=== PATIENT | female | born 1975 | race Caucasian/White ===

== ENCOUNTER 2019-06-04 15:55 | Outpatient (CLI) | payer BC, SELFPAY ==
--- NOTE | ~2019-06-04 | CT_ITS ---
EXAMINATION: CT sinus wo con EXAM DATE: 06/04/2019 16:20 INDICATION: Pulsatile tinnitus. TECHNIQUE: Spiral CT of the sinuses was acquired in the axial plane. Coronal and sagittal reformatte d images were also reviewed. The dose-length product (DLP) for this examination was 315.62 mGy-cm. Iterative reconstruction (ASIR) was used as dose reduction technique. There is no prior study for co mparison. FINDINGS: The sinuses are normally developed. Small left maxillary sinus mucous retention cyst. T he ostiomeatal units are patent. There is no sinus wall thickening. There is mild leftward nasal septal deviation. The mastoid air cells and middle ears are well aerated. External auditory canals are patent. The orbits and visualized soft tissues are unremarkable. Symmetric carotid canals. IMPRESSION: 1. Mild leftward nasal septal deviation. Reviewed, dictated and finalized at location A. F OPERATOR
== END 2019-06-04 15:56 | disposition home or self-care (01) ==
LOC: ANHIMG 16:01
PROVIDERS: PCP Internal Medicine Geriatric Medicine; Visit Provider Otolaryngology
DX: H93.A2 Pulsatile tinnitus, left ear (principal); J34.2 Deviated nasal septum
CPT/HCPCS: 70486

== ENCOUNTER 2021-12-30 00:42 | Emergency (ER) | payer OTHER, SELFPAY ==
--- NOTE | ~2021-12-30 | CT_ITS ---
EXAMINATION: CT abdomen pelvis w con DATE: 12/30/2021 02:04 INDICATION: Bilateral flank pain. Right upper quadrant abdominal pain. TECHNIQUE: Computed tomography (CT) of the abdomen and pelvis was performed with 100 mL Omnipaque 350 intravenous contrast. Automated exposure control and iterative reconstruction technique were employe d. The dose-length product was 498.80 mGy-cm. COMPARISON: None. FINDINGS: The visualized portions of the lung bases are clear without pneumonia or pleural effusion. The heart size is normal. Breast implants are noted. The liver, gallbladder, spleen, adrenal glands, and kidneys are normal. There is fat stranding adjacent to the tail of the pancreas. There is a 5 mm cyst in the tail of the pancreas. There is mass effect on the splenic vein in this area, which demons trates stenosis. There is a large volume of stool in the colon. There are no dilated loops of bowel. The appendix is nonvisualized. There are no pathologically enlarged lymph nodes. There is no free int raperitoneal fluid. There is mild lumbar spondylosis. IMPRESSION: 1. Pancreatitis, which may be acute or chronic. Reviewed, dictated and finalized at location A.
[2021-12-30 00:44] VITALS: BP 131/59; PULSE 109; RESP 18; TEMP 36.6; O2SAT 99
--- NOTE | 2021-12-30 00:56 | ED.GENADULT ---
HPI - General Adult General Chief complaint: Abdominal Pain <CORDELL Rayo Last Filed: 12/30/21 03:22> Stated complaint: bilateral flank pain <CORDELL Rayo Last Filed: 12/30/21 03:22> Time Seen by Provider: 12/30/21 00:49 <CORDELL Rayo Last Filed: 12/30/21 03:22> Source: patient <CORDELL Rayo Last Filed: 12/30/21 03:22> Mode of arrival: ambulatory <CORDELL Rayo Last Filed: 12/30/21 03:22> Limitations: no limitations <CORDELL Rayo Last Filed: 12/30/21 03:22> History of Present Illness HPI narrative: Patient is a 46 y/o female who presents to the ED with c/o abdominal pain and flank pain. Patient reports she first developed pain in her upper abdomen and left flank on Tuesday. Pain has been intermittent but worsening since then. She now reports having pain also in her right-sided mid back/flank. Patient has been taking Tylenol at home without relief. She denies history of similar pain. Does have history of UTI, but denies current dysuria, hematuria, urinary frequency. Denies any nausea, vomiting, chest pain, shortness of breath, fever. Reports some constipation, last BM 3 days ago, but states this is not abnormal for her. <CORDELL Rayo Last Filed: 12/30/21 03:22> Related Data Home medications: Home Medications Medication Instructions Recorded Confirmed alprazolam 1 mg tablet mg 12/30/21 baclofen 10 mg tablet mg 12/30/21 bupropion HCl 150 mg 24 hr tablet, mg PO 12/30/21 12/30/21 extended release celecoxib 200 mg capsule mg 12/30/21 cyclobenzaprine 10 mg tablet mg 12/30/21 duloxetine 30 mg capsule,delayed mg PO 12/30/21 release ergocalciferol (vitamin D2) 1,250 12/30/21 mcg (50,000 unit) capsule hydroxychloroquine 200 mg tablet mg PO 12/30/21 linaclotide 290 mcg capsule mcg 12/30/21 (Linzess) montelukast 10 mg tablet mg 12/30/21 omeprazole 20 mg capsule,delayed mg 12/30/21 release zolpidem 10 mg tablet mg 12/30/21 12/30/21 <Amelia Kramer PA-C - Last Filed: 12/30/21 03:22> Allergies/adverse reactions: Allergies Allergy/AdvReac Type Severity Reaction Status Date / Time amoxicillin Allergy Rash Verified 12/30/21 01:08 <Amelia Kramer PA-C - Last Filed: 12/30/21 03:22> Review of Systems Review of Systems: CONSTITUTIONAL: Denies fever, chills, or sweats. CARDIOVASCULAR: Denies chest pain. RESPIRATORY: Denies dyspnea. GASTROINTESTINAL: Reports upper abdominal pain, constipation. Denies nausea, vomiting, or diarrhea. GENITOURINARY: Denies dysuria, urinary frequency, or hematuria. MUSCULOSKELETAL: Reports bilateral flank pain. <Amelia Kramer PA-C - Last Filed: 12/30/21 03:22> All systems reviewed & are unremarkable except as noted in HPI and below <Amelia Kramer PA-C - Last Filed: 12/30/21 03:22> FOR[facility]LY [facility] Past Medical History Medical History: Medical History (Updated 12/30/21 @ 03:19 by Amelia Kramer PA-C) Anxiety GERD (gastroesophageal reflux disease) IBS (irritable bowel syndrome) Insomnia Lupus (systemic lupus erythematosus) <Amelia Kramer PA-C - Last Filed: 12/30/21 03:22> Surgical History Surgical History: Surgical History (Updated 12/30/21 @ 01:16 by Amelia Kramer PA-C) History of arthroscopic knee surgery <Amelia Kramer PA-C - Last Filed: 12/30/21 03:22> Social History Social History: Social History (Updated 12/30/21 @ 01:17 by Amelia Kramer PA-C) Smoking status: Never smoker <Amelia Kramer PA-C - Last Filed: 12/30/21 03:22> Exam Narrative: GENERAL: Well appearing, well-nourished, non-toxic, in no acute distress. HEAD: Normocephalic, atraumatic. NECK: Supple. No adenopathy, no masses. RESPIRATORY: Airway patent, respirations nonlabored. Clear to auscultation bilaterally, no rales, rhonchi, wheezing. CARD
[2021-12-30 01:29] LABS: Basophils Absolute Auto 0.1 K/mm3 (0.0-0.1); Basophils Percent Auto 0.6 % (0.2-1.2); Eosinophils Absolute Auto 0.3 K/mm3 (0-0.3); Eosinophils Percent Auto 3.5 % (0-4.4); Hematocrit 40.3 % (37.0-47.0); Hemoglobin 14.2 g/dL (12.0-15.0); Immature Granulocyte Absolute 0.02 K/mm3 (0.00-0.031); Immature Granulocyte Percent A 0.3 % (0-0.5); Lymphocytes Absolute Auto 2.16 K/mm3 (0.9-3.2); Lymphocytes Percent Auto 27.6 % (18.3-44.2); Mean Corpuscular HGB Conc 35.2 g/dl (32-36); Mean Corpuscular Hemoglobin 32.2 pg (26-34); Mean Corpuscular Volume 91.4 fl (80-100); Mean Platelet Volume 9.3 fl (7.4-10.4); Monocytes Absolute Auto 0.6 K/mm3 (0.1-0.6); Monocytes Percent Auto 7.7 % (2.6-8.5); Neutrophils Absolute Auto 4.7 K/mm3 (1.3-6.7); Neutrophils Percent Auto 60.3 % (45.5-73.1); Platelet Count Result 310 k/mm3 (150-375); Red Blood Count 4.41 M/mm3 (4.2-5.4); Red Cell Distribution Width 11.7 % (11.5-14.5); White Blood Count 7.8 K/mm3 (4.5-10.0)
[2021-12-30] MEDS: SODIUM CHLORIDE 0.9% IV 1,000 ML 999 ML IV CONT (01:37)
[2021-12-30 01:43] LABS: Alanine Aminotransferase 24 U/L (6-35); Albumin Level 4.7 g/dL (3.5-5.1); Alkaline Phosphatase 73 U/L (38-126); Anion Gap 16 mmol/L (8-16); Aspartate Amino Transferase 23 U/L (14-36); Bilirubin,Total 0.7 mg/dL (0.2-1.3); Blood Urea Nitrogen 13 mg/dL (7-17); Carbon Dioxide 27 mmol/L (22-30); Chloride 98 mmol/L (98-107); Estimated CRCL calculation 95 ml/min; Estimated Glomerular Filt Rate > 60; Glucose 142 mg/dL (65-110); Lipase 176 U/L (23-300); Potassium 3.4 mmol/L (3.4-5.0); Sodium 141 mmol/L (137-145)
[2021-12-30 01:46] VITALS: BP 128/75; PULSE 98; O2SAT 99
[2021-12-30 02:09] VITALS: BP 128/65; PULSE 92; O2SAT 99
[2021-12-30 02:16] VITALS: BP 151/94; PULSE 89; O2SAT 100
[2021-12-30] MEDS: ONDANSETRON INJ 4 MG/2 ML VIAL IV PUSH (02:30)
[2021-12-30 02:32] VITALS: BP 146/84; PULSE 92; O2SAT 100
[2021-12-30] MEDS: MORPHINE SULFATE (*CRX) 2 MG/ML INJ IV PUSH (02:33)
--- NOTE | 2021-12-30 02:47 | PC.NURSE ---
Pt given morphine and then assisted with ambulation to bathroom. Pt gait steady.
[2021-12-30 03:13] LABS: Appearance Urine Clear (Clear); Bilirubin Urine Negative (Negative); Blood Urine Negative (Negative); Color Urine Yellow (Yellow); Glucose Urine UA Negative (Negative); Ketones Urine Negative (Negative); Leukocyte Esterase Ur Negative LEU/UL (Negative); Nitrate Urine Negative (Negative); Protein Urine Negative (Negative); Urobilinogen Urine 0.2 mg/dL (<2.0)
[2021-12-30 03:36] LABS: Add Urine Microscopic? NO
== END 2021-12-30 04:05 | disposition home or self-care (01) ==
PROVIDERS: Physician Assistant; Emergency Provider Emergency Medicine; PCP Family Medicine
DX: M54.6 Pain in thoracic spine (principal); K86.3 Pseudocyst of pancreas; K59.00 Constipation, unspecified; K21.9 Gastro-esophageal reflux disease without esophagitis; M32.9 Systemic lupus erythematosus, unspecified; F41.9 Anxiety disorder, unspecified
CPT/HCPCS: 36415; 74177; 80053; 81003; 81025; 83690; 85025; 96365; 96375; 99284; J0131; J2270; J2405; J7030; Q9967